=== PATIENT | female | born 1960 | race Caucasian/White ===

== ENCOUNTER 2016-06-30 16:32 | Observation (INO) ==
--- NOTE | 2016-06-30 16:54 | Emergency Department Note ---
Disposition Clinical Impression: Acute exacerbation of chronic obstructive airways disease Disposition: Admitted As Inpatient Referrals: Paul Mccloud MD [Primary Care Provider] - Forms: ED Satisfaction Letter SOB HPI - General Chief Complaint: ED Shortness of Breath/Dyspnea Stated Complaint: increased trouble breathing Time Seen by Provider: 06/30/16 16:41 Source: patient, family Mode of arrival: private vehicle Limitations: no limitations Nursing Notes Reviewed: Yes Vital Signs Reviewed: Yes - History of Present Illness Relates that she has had increased shortness of breath for 2-3 weeks. She relates she has been through multiple treatments, steroids, antibiotics and aerosols and continues with persistent severe dyspnea. She reports dyspnea on exertion and at rest. She was given her last increased prednisone and Solu- Medrol 2 days ago and continues with shortness of breath. She did see her communications specialist about 2 weeks ago and states that he was not in today. She has been doing aerosols about every 4 hours for 3 weeks. She does report some chills but denies fever. She states she has a tight cough that is nonproductive. She does report some without vomiting. She denies diaphoresis, weakness or dizziness. She states she has been around multiple others with upper respiratory infection. She states that when it has gotten this bad she usually ended up needing to be admitted and she would like to go to [facility] if she can. Pt Subjective Complaint: shortness of breath Onset (ago): week(s) Context: recent illness Severity: moderate, severe Consistency/Duration: gradually worsening Improves with: oxygen, bronchodilators Worsens with: exertion, movement, coughing Known history of: COPD Associated symptoms: Reports: cough, wheezing, nausea/vomiting (No vomiting). Denies: chest pain, pain with inspiration, fever, sputum production, orthopnea, lower extremity pain, polyuria, polydipsia, parasthesias, palpitations, hemoptysis, diaphoresis, syncope, abdominal pain, rash Treatment prior to arrival: oxygen, bronchodilator Cough present: Yes Cough Description: Voluntary, Non-Productive, Hacking Cough Frequency: Intermittent Sputum production: No - Related Data Home oxygen amount: none Home Medications Medication Instructions Recorded Confirmed Dexlansoprazole [Dexilant] 60 mg PO DAILY 01/04/15 04/03/16 Esomeprazole Magnesium [Nexium] 40 mg PO DAILY 01/04/15 04/03/16 Gabapentin [Neurontin] 300 mg PO BID 01/04/15 04/03/16 Albuterol Sulfate [Ventolin Hfa] 2 puff IH DAILY PRN 04/07/15 04/03/16 Budesonide/Formoterol 160/4.5 1 puff IH DAILY 12/28/15 04/03/16 [Symbicort 160/4.5] FLUoxetine HCl [Prozac] 20 mg PO DAILY 12/28/15 04/03/16 Albuterol Neb [Proventil Neb] 2.5 mg IH PRN PRN 01/01/16 04/03/16 Fluticasone/Salmeterol [Advair Hfa 1 puff IH BID 01/01/16 04/03/16 115-21 Mcg Inhaler] Omalizumab [XOLAIR (For Outpatient 150 mg SQ Q2W 01/01/16 04/03/16 Infusion)] Previous Rx's Medication Instructions Recorded Montelukast [Singulair] 10 mg PO DAILY #30 tablet 04/09/15 Tiotropium [Spiriva] 18 mcg IH 0700 #30 capsule 04/09/15 Celecoxib [Celebrex] 200 mg PO BID 10 Days 01/01/16 Gabapentin [Neurontin] 400 mg PO TID 30 Days 01/01/16 PredniSONE 20 mg PO DAILY #24 tablet 06/25/16 Allergies Allergy/AdvReac Type Severity Reaction Status Date / Time aspirin Allergy Mild Wheezing Verified 04/03/16 23:20 milk Allergy See Verified 04/03/16 23:20 Comments Pneumococcal Vaccine AdvReac Anxiety Verified 06/30/16 16:33 quetiapine [From Seroquel] AdvReac Agitated Verified 04/03/16 23:20 All systems ED: reviewed and negative except as stated. Past Medical History - Past Medical History Attestation: Yes The following information was validated with the patient. Source: patient, nursing notes reviewed Medical history: Reports: asthma, COPD, GERD, other Surgical history: Reports: cholecystectomy, sinus surgery, CORRINE/BSO, other Psychiatric history: Reports: anxiety, bipolar, depression, panic disorder FARO DEALER history: Reports: no FARO DEALER history - Social History Smoking Status: Never smoker Smokeless Tobacco Status: No Alcohol use: Reports: none Drug use: Reports: none Physical Exam - General Limitations: no limitations General appearance: alert, in distress - Head Head exam: atraumatic, normocephalic, normal inspection - Eye Eye exam: Present: normal appearance, PERRL, EOMI - ENT ENT exam: normal exam, normal oropharynx, mucous membranes moist - Neck Neck exam: Present: normal inspection, full ROM, trachea midline. Absent: tenderness, lymphadenopathy - Chest Chest inspection: Present: normal inspection, symmetric chest wall rise. Absent : tenderness - Respiratory Respiratory exam: Present: respiratory distress, wheezes, prolonged expiratory phase. Absent: accessory muscle use - Cardiovascular Cardiovascular exam: Present: regular rate, normal rhythm, normal heart sounds. Absent: tachycardia - Abdominal Exam Abdominal exam: Present: soft, Non-Tender, normal bowel sounds. Absent: tenderness, distention, guarding, rebound, rigidity - Extremities Exam Extremities exam: Present: normal inspection, full ROM, normal capillary refill. Absent: tenderness, pedal edema - Expanded Lower Extremity Exam Neurovascular/Tendon exam: Present: normal capillary refill. Absent: motor deficit, sensory deficit, tendon deficit Gait: observed and normal - Back Exam Back exam: Present: normal inspection, full ROM. Absent: tenderness, CVA tenderness (R), CVA tenderness (L), vertebral tenderness - Neurological Exam Neurological exam: Present: alert, oriented X3, normal gait - Psychiatric Psychiatric exam: Present: normal affect, normal mood - Skin Skin exam: Present: warm, dry, intact, normal color. Absent: cyanosis, diaphoresis, erythema Course Course Narrative: All lab and imaging and the patient's clinical course is discussed with Dr. Pozo. He is agreeable with continued observation this patient and patient on COPD protocol. Verbal orders are obtained her admission. Vital Signs Temperature 99.1 F 06/30/16 16:35 Pulse Rate 95 06/30/16 16:35 Respiratory Rate 20 06/30/16 16:35 Blood Pressure 166/99 06/30/16 16:35 O2 Sat by Pulse Oximetry 96 06/30/16 16:35 Temperature 99.1 F 06/30/16 16:40 Pulse Rate 87 06/30/16 17:56 Respiratory Rate 20 06/30/16 17:56 Blood Pressure 157/94 06/30/16 17:56 O2 Sat by Pulse Oximetry 94 L 06/30/16 17:56 Oxygen Delivery Oxygen Delivery Nasal Cannula Shortness of Breath/Dyspnea - Differential Diagnosis Likely: acute exacerbation of chronic obstructive airways disease, pneumonia, asthma with exacerbation - Medical Records Medical records reviewed: Yes I reviewed the patient's medical records. - Lab Data Lab results reviewed: Yes I reviewed the patient's lab results. Result diagrams: 06/30/16 17:15 06/30/16 17:15 Lab Results 06/30/16 06/30/16 06/30/16 Range/Units 17:15 17:15 17:15 WBC 8.5 (4.3-11.1) K/mcL RBC 5.12 H (3.82-4.97) M/mcL Hgb 13.7 (11.5-15.4) g/dL Hct 40.9 (35.3-44.9) % MCV 79.9 L (83.0-100.0) fL MCH 26.8 L (28.0-33.3) pg MCHC 33.5 (31.6-35.5) g/dL RDW 13.4 (11.5-14.5) % Plt Count 240 (140-400) K/mcL MPV 10.8 (9.4-12.4) fL Immature Gran % 0.4 (0-4) % Seg Neutrophils % 63.8 % Lymphocytes % 26.3 % Monocytes % 4.0 % Eosinophils % 4.9 % Basophils % 0.6 % Neutrophils # 5.4 (1.6-8.9) K/mcL Lymphocytes # 2.2 (0.6-4.6) K/mcL Monocytes # 0.3 (0.0-1.3) K/mcL Eosinophils # 0.4 (0.0-0.6) K/mcL Basophils # 0.1 (0.0-0.2) K/mcL PT 10.0 (9.4-12.1) Seconds INR 0.9 APTT 27.3 (26.0-36.0) Seconds Sodium 140 (136-145) mEq/L Potassium 3.9 (3.5-4.5) mEq/L Chloride 107 (98-109) mEq/L Carbon Dioxide 21 (19-29) mEq/L BUN 14 (7-20) mg/dL Creatinine 0.76 (0.57-1.11) mg/dL Est GFR ( Amer) > 60 (> 60) Est GFR (Non-Af Amer) > 60 (> 60) BUN/Creatinine Ratio 18 (6-26) Glucose 108 H (70-99) mg/dL Calculated Osmolality 291 (280-300) Calcium 8.9 (8.6-10.8) mg/dL Troponin I (0-0.03) ng/mL 06/30/16 Range/Units 17:15 WBC (4.3-11.1) K/mcL RBC (3.82-4.97) M/mcL Hgb (11.5-15.4) g/dL Hct (35.3-44.9) % MCV (83.0-100.0) fL MCH (28.0-33.3) pg MCHC (31.6-35.5) g/dL RDW (11.5-14.5) % Plt Count (140-400) K/mcL MPV (9.4-12.4) fL Immature Gran % (0-4) % Seg Neutrophils % % Lymphocytes % % Monocytes % % Eosinophils % % Basophils % % Neutrophils # (1.6-8.9) K/mcL Lymphocytes # (0.6-4.6) K/mcL Monocytes # (0.0-1.3) K/mcL Eosinophils # (0.0-0.6) K/mcL Basophils # (0.0-0.2) K/mcL PT (9.4-12.1) Seconds INR APTT (26.0-36.0) Seconds Sodium (136-145) mEq/L Potassium (3.5-4.5) mEq/L Chloride (98-109) mEq/L Carbon Dioxide (19-29) mEq/L BUN (7-20) mg/dL Creatinine (0.57-1.11) mg/dL Est GFR ( Amer) (> 60) Est GFR (Non-Af Amer) (> 60) BUN/Creatinine Ratio (6-26) Glucose (70-99) mg/dL Calculated Osmolality (280-300) Calcium (8.6-10.8) mg/dL Troponin I 0.00 (0-0.03) ng/mL - Radiology Data Radiology results reviewed: Yes I reviewed the patient's radiology results. Single view chest x-ray is performed. This does not demonstrate evidence for infiltrate, effusion, pneumothorax, foreign body or heart failure. The cardiac silhouette is normal. I do not see abnormality to the osseous structures of the chest. This is on my interpretation. Impressions Chest X-Ray 06/30/16 16:59 IMPRESSION: No acute cardiac or pulmonary disease. D/ / Romel Palm MD / Romel Palm MD Interpreting Provider: Romel Palm MD
[2016-06-30] MEDS ORDERED: 0.9 % Sodium Chloride 1,000 ML IVC SCH (17:00)
[2016-06-30] MEDS ORDERED: Ipratropium/Albuterol Neb 3 ML IH ONE (17:00)
[2016-06-30 17:23] LABS: Basophils # 0.1 K/mcL (0.0-0.2); Basophils % 0.6 %; Eosinophils # 0.4 K/mcL (0.0-0.6); Eosinophils % 4.9 %; Hematocrit 40.9 % (35.3-44.9); Hemoglobin 13.7 g/dL (11.5-15.4); Immature Granulocytes % 0.4 % (0-4); Lymphocytes # 2.2 K/mcL (0.6-4.6); Lymphocytes % 26.3 %; Mean Corpuscular HGB Conc 33.5 g/dL (31.6-35.5); Mean Corpuscular Hemoglobin 26.8 pg (28.0-33.3); Mean Corpuscular Volume 79.9 fL (83.0-100.0); Mean Platelet Volume 10.8 fL (9.4-12.4); Monocytes # 0.3 K/mcL (0.0-1.3); Neutrophils # 5.4 K/mcL (1.6-8.9); Platelet Count 240 K/mcL (140-400); Red Blood Count 5.12 M/mcL (3.82-4.97); Red Cell Distribution Width 13.4 % (11.5-14.5); Segmented Neutrophils % 63.8 %
[2016-06-30 17:29] LABS: INR 0.9
[2016-06-30 17:31] LABS: Activated Partial Thrombo Time 27.3 Seconds (26.0-36.0)
[2016-06-30 17:38] LABS: BUN/Creatinine Ratio 18 (6-26); Blood Urea Nitrogen 14 mg/dL (7-20); Calcium 8.9 mg/dL (8.6-10.8); Carbon Dioxide 21 mEq/L (19-29); Chloride 107 mEq/L (98-109); Glucose 108 mg/dL (70-99); Osmolality,Calculated 291 (280-300); Potassium 3.9 mEq/L (3.5-4.5); Sodium 140 mEq/L (136-145); eGFR For African Americans > 60 (> 60); eGFR For Non-African Americans > 60 (> 60)
[2016-06-30] MEDS ORDERED: Naloxone 0.4 MG/ML INJ IVP PRN (20:45)
[2016-06-30] MEDS ORDERED: MOM Conc 10 ML UD.LIQ PO PRN (20:45)
[2016-06-30] MEDS ORDERED: Acetaminophen 325 MG TABLET PO PRN (20:45)
[2016-06-30] MEDS ORDERED: Ondansetron 4 MG/2 ML VIAL IVP PRN (20:45)
[2016-06-30] MEDS: 0.9 % Sodium Chloride 1,000 ML IVC SCH (22:02)
[2016-06-30] MEDS ORDERED: GI Cocktail 40 ML EACH PO ONE (22:30)
[2016-06-30] MEDS: Ipratropium/Albuterol Neb 3 ML IH SCH (22:50)
[2016-07-01] MEDS: MethylPREDNISolone 40 MG/ML VIAL IVP SCH ×2 (01:15→10:24)
[2016-07-01] MEDS: 0.9 % Sodium Chloride 1,000 ML IVC SCH (02:07)
[2016-07-01] MEDS: Ipratropium/Albuterol Neb 3 ML IH SCH ×2 (04:49→10:32)
[2016-07-01] MEDS ORDERED: Levofloxacin 500 MG/100 ML 500 MG/100 ML BAG IVPB SCH (09:00)
[2016-07-01 12:09] VITALS: BP 169/93
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
--- NOTE | 2016-07-01 12:37 | Discharge Summary ---
Date of Encounter: 07/01/16 Time of Encounter: 11:40 - Discharge Diagnosis (1) Acute exacerbation of chronic obstructive airways disease Priority: Primary Status: Acute - Discharge Medications Home Medications: Dexlansoprazole [Dexilant] 60 mg PO DAILY 01/04/15 [History] Gabapentin [Neurontin] 300 mg PO BID 01/04/15 [History] Albuterol Sulfate [Ventolin Hfa] 2 puff IH DAILY PRN 04/07/15 [History] Montelukast [Singulair] 10 mg PO DAILY #30 tablet 04/09/15 [Rx] Tiotropium [Spiriva] 18 mcg IH 0700 #30 capsule 04/09/15 [Rx] FLUoxetine HCl [Prozac] 20 mg PO DAILY 12/28/15 [History] Albuterol Neb [Proventil Neb] 2.5 mg IH PRN PRN 01/01/16 [History] Fluticasone/Salmeterol [Advair Hfa 115-21 Mcg Inhaler] 1 puff IH BID 01/01/16 [ History] Omalizumab [XOLAIR (For Outpatient Infusion)] 150 mg SQ Q2W 01/01/16 [History] PredniSONE 20 mg PO DAILY #24 tablet 06/25/16 [Rx] Allergies/Adverse Reactions: Allergies aspirin Allergy (Mild, Verified 04/03/16 23:20) Wheezing milk Allergy (Verified 04/03/16 23:20) See Comments Pneumococcal Vaccine Adverse Reaction (Verified 06/30/16 16:33) Anxiety quetiapine [From Seroquel] Adverse Reaction (Verified 04/03/16 23:20) Agitated Date of admission: 06/30/16 19:19 Primary care physician: Paul Mccloud MD - Patient Status Disposition: Home, Self-Care Functional capacity at discharge: independent ambulation Overall status at discharge: patient is progressing back to baseline - Discharge Instructions Follow Up With: Paul Mccloud MD [Primary Care Provider] - 1 week - Diet and Activity Activity: resume usual activities as tolerated Diet: advance to your usual diet Hospital course: Ms. Turner is a 56 year old female who came to emergency room stating she had increased dyspnea onset approximately 3 weeks ago. 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 There was minimal improvement with this treatment. On June 28 she came to emergency room and received additional steroids and was given a prescription for prednisone. Her status remained unimproved so she returned to emergency room on June 30 and was felt to have exacerbation of COPD. She was admitted to [facility] for ongoing care needs. Initial orders were written by the emergency room physician. I saw her on July 01 and performed a history and physical. She was started on IV Levaquin and Solu-Medrol by the emergency room physician. When I saw her she stated her breathing had improved and she felt stable for discharge home. I did not feel she needed further antibiotics. She will complete the prednisone prescription supplied in emergency room a few days ago. I reviewed her history and note an echocardiogram had been done August 2013 which showed no systolic or diastolic function abnormalities. Chest CT done in December 2015 showed no significant pathology. She will be discharged home and follow with her PCP and/or insole and outsole preparer office within one week. - Time Spent with Patient Total time spent providing and/or coordinating discharge services: - Constitutional Vitals: Temp Pulse Resp BP Pulse Ox 98.5 F 106 16 169/93 95 07/01/16 12:00 07/01/16 12:00 07/01/16 12:00 07/01/16 12:00 07/01/16 12:00 - VTE Documentation of Mechanical Device: Graduated compression elastic hosiery
--- NOTE | 2016-07-01 18:02 | Electrocardiograph Report ---
[address] [address] Test Date: 2016-06-30 Pat Name: Rachel Turner Department: [id number] Room: [facility] Gender: F Fisher Seal: : 1960 Requested By: Juan Johnson Order Number: [id number] Reading MD: Nae Acevedo Measurements Intervals [place] Rate: 84 P: 56 TX: 152 QRS: 5 QRSD: 90 T: 16 QT: 369 QTc: 409 Interpretive Statements SINUS RHYTHM LOW QRS VOLTAGE IN PRECORDIAL LEADS Electronically Signed On 07-01-2016 18:00:47 EST by Nae Acevedo
== END 2016-07-01 13:19 | disposition home or self-care (01) ==
LOC: EMEROOPIK 16:32 → INPPIK 16:32
PROVIDERS: ADMIT Internal Medicine; ATTEND Internal Medicine

== ENCOUNTER 2020-10-30 15:10 | Observation (INO) ==
[2020-10-30] MEDS ORDERED: Perflutren Lipid Microsphere 1.3 ML in 0.9 % Sodium Chloride 8.7 ML IVP PRN (16:54)
[2020-10-30] MEDS ORDERED: Ondansetron ODT 4 MG TAB.RAPDIS SL PRN (17:07)
[2020-10-30] MEDS ORDERED: Acetaminophen 325 MG TABLET PO PRN (17:07)
[2020-10-30] MEDS ORDERED: Naloxone 0.4 MG/ML INJ IVP PRN (17:07)
[2020-10-30 17:25] LABS: Basophils # 0.1 K/mcL (0.0-0.2); Basophils % 0.4 %; Eosinophils # 0.1 K/mcL (0.0-0.6); Hematocrit 39.6 % (35.3-44.9); Hemoglobin 12.7 g/dL (11.5-15.4); Lymphocytes # 3.7 K/mcL (0.6-4.6); Lymphocytes % 27.5 %; Mean Corpuscular HGB Conc 32.1 g/dL (31.6-35.5); Mean Corpuscular Hemoglobin 24.7 pg (28.0-33.3); Mean Corpuscular Volume 76.9 fL (83.0-100.0); Mean Platelet Volume 9.9 fL (9.4-12.4); Monocytes # 0.8 K/mcL (0.0-1.3); Monocytes % 6.1 %; Neutrophils # 8.6 K/mcL (1.6-8.9); Platelet Count 303 K/mcL (140-400); Red Blood Count 5.15 M/mcL (3.82-4.97); Red Cell Distribution Width 14.6 % (11.5-14.5); White Blood Count 13.5 K/mcL (4.3-11.1)
[2020-10-30 17:41] LABS: Alanine Aminotransferase 49 Units/L (7-52); Albumin 4.2 g/dL (3.5-5.7); Albumin/Globulin Ratio 1.4 (1.1-2.2); Alkaline Phosphatase 104 Units/L (34-104); Aspartate Amino Transferase 24 Units/L (13-39); BUN/Creatinine Ratio 15 (6-26); Bilirubin,Total 0.4 mg/dL (0.3-1.0); Blood Urea Nitrogen 13 mg/dL (6-20); Calcium 9.3 mg/dL (8.6-10.3); Carbon Dioxide 27 mEq/L (23-29); Chloride 102 mEq/L (98-107); Globulin 2.9 g/dL (2.4-3.5); Glucose 108 mg/dL (70-105); Magnesium 1.9 mg/dL (1.6-2.6); Osmolality,Calculated 289 (280-300); Potassium 3.3 mEq/L (3.5-5.1); Sodium 139 mEq/L (136-145); Total Protein 7.1 g/dL (6.4-8.9); eGFR For African Americans > 60 (> 60); eGFR For Non-African Americans > 60 (> 60)
[2020-10-30] MEDS ORDERED: Isovue-370 500 ML BOTTLE IVP ONE (17:43)
[2020-10-30 17:44] LABS: Troponin I < 0.03 ng/mL (< 0.04)
[2020-10-30 19:23] LABS: Bilirubin,Urine Negative (Negative); Blood,Urine Negative (Negative); Clarity,Urine Clear (Clear); Glucose,Urine (UA) Normal (Normal); Ketones,Urine Negative (Negative); Leukocyte Esterase,Urine Negative (Negative); Nitrite,Urine Negative (Negative); Protein,Urine Negative (Neg-Trace); Specific Gravity,Urine 1.015 (1.010-1.025); Urobilinogen,Urine Normal (Normal)
[2020-10-30 19:27] LABS: Color,Urine Light Yellow (Yellow)
[2020-10-30 19:50] LABS: Adenovirus Not Detected (Not Detect); Bordetella Pertussis Not Detected (Not Detect); Chlamydophila pneumoniae Not Detected (Not Detect); Coronavirus 229E Not Detected (Not Detect); Coronavirus HKU1 Not Detected (Not Detect); Coronavirus NL63 DETECTED (Not Detect); Coronavirus OC43 Not Detected (Not Detect); Human Metapneumovirus Not Detected (Not Detect); Human Rhinovirus/Enterovirus Not Detected (Not Detect); Influenza A Subtype 2009 H1 Not Detected (Not Detect); Influenza B Not Detected (Not Detect); Mycoplasma pneumoniae Not Detected (Not Detect); Parainfluenza Virus 1 Not Detected (Not Detect); Parainfluenza Virus 2 Not Detected (Not Detect); Parainfluenza Virus 3 Not Detected (Not Detect); Parainfluenza Virus 4 Not Detected (Not Detect); Respiratory Syncytial Virus Not Detected (Not Detect); SARS-CoV-2 Not Detected (Not Detect)
[2020-10-30] MEDS: Pantoprazole 40 MG VIAL IVP SCH (19:54)
[2020-10-30] MEDS: cefTRIAXone 2,000 MG in 0.9 % Sodium Chloride Mini Bag 100 ML IVPB SCH (19:59)
[2020-10-30] MEDS: risperiDONE 1 MG TABLET PO SCH (20:03)
[2020-10-30] MEDS: ALPRAZolam 0.5 MG TABLET PO SCH (20:04)
[2020-10-30] MEDS: Budesonide/Formoterol 160/4.5 1 PUFF INH IH SCH (20:28)
[2020-10-30] MEDS: Azithromycin 500 MG in 0.9 % Sodium Chloride 250 ML IVPB SCH (21:11)
[2020-10-30] MEDS: *HR* Heparin 5,000 UNIT/ML VIAL SQ SCH (22:58)
[2020-10-30] MEDS: MethylPREDNISolone 40 MG/ML VIAL IVP SCH (23:52)
[2020-10-31] MEDS: Ipratropium/Albuterol Neb 3 ML IH PRN (03:24)
[2020-10-31] MEDS: Levothyroxine 25 MCG TABLET PO SCH (05:48)
[2020-10-31] MEDS: *HR* Heparin 5,000 UNIT/ML VIAL SQ SCH ×4 (05:48→20:26)
[2020-10-31 06:27] LABS: Hematocrit 37.6 % (35.3-44.9); Hemoglobin 11.7 g/dL (11.5-15.4); Mean Corpuscular HGB Conc 31.1 g/dL (31.6-35.5); Mean Corpuscular Hemoglobin 24.6 pg (28.0-33.3); Mean Platelet Volume 10.8 fL (9.4-12.4); Platelet Count 273 K/mcL (140-400); Red Blood Count 4.76 M/mcL (3.82-4.97); Red Cell Distribution Width 14.8 % (11.5-14.5); White Blood Count 7.4 K/mcL (4.3-11.1)
[2020-10-31 07:38] LABS: BUN/Creatinine Ratio 12 (6-26); Blood Urea Nitrogen 11 mg/dL (6-20); Calcium 8.9 mg/dL (8.6-10.3); Carbon Dioxide 25 mEq/L (23-29); Chloride 103 mEq/L (98-107); Glucose 212 mg/dL (70-105); Osmolality,Calculated 294 (280-300); Potassium 3.9 mEq/L (3.5-5.1); Sodium 139 mEq/L (136-145); eGFR For African Americans > 60 (> 60); eGFR For Non-African Americans > 60 (> 60)
[2020-10-31] MEDS: Budesonide/Formoterol 160/4.5 1 PUFF INH IH SCH ×2 (09:35→20:34)
[2020-10-31] MEDS: Pantoprazole 40 MG VIAL IVP SCH (10:18)
[2020-10-31] MEDS: Isosorbide MONOnitrate (24 HR) 60 MG TAB.ER.24H PO SCH (10:19)
[2020-10-31] MEDS: risperiDONE 1 MG TABLET PO SCH ×2 (10:19→20:26)
[2020-10-31] MEDS: MethylPREDNISolone 40 MG/ML VIAL IVP SCH ×2 (10:19→18:11)
[2020-10-31] MEDS: ALPRAZolam 0.5 MG TABLET PO SCH ×3 (10:19→20:26)
[2020-10-31] MEDS: Furosemide 20 MG TABLET PO SCH (10:20)
[2020-10-31] MEDS: amLODIPine 5 MG TABLET PO SCH (10:20)
[2020-10-31] MEDS: cefTRIAXone 2,000 MG in 0.9 % Sodium Chloride Mini Bag 100 ML IVPB SCH (18:12)
[2020-10-31] MEDS: Azithromycin 500 MG in 0.9 % Sodium Chloride 250 ML IVPB SCH (18:53)
[2020-10-31] MEDS: Melatonin 3 MG TABLET PO PRN (20:26)
[2020-11-01] MEDS: MethylPREDNISolone 40 MG/ML VIAL IVP SCH ×3 (01:21→15:11)
[2020-11-01] MEDS: *HR* Heparin 5,000 UNIT/ML VIAL SQ SCH ×3 (07:00→20:14)
[2020-11-01] MEDS: Levothyroxine 25 MCG TABLET PO SCH (07:01)
[2020-11-01] MEDS: Budesonide/Formoterol 160/4.5 1 PUFF INH IH SCH ×2 (07:20→20:07)
[2020-11-01] MEDS: Ipratropium/Albuterol Neb 3 ML IH PRN ×2 (07:23→20:01)
[2020-11-01 08:40] LABS: Hematocrit 37.4 % (35.3-44.9); Hemoglobin 11.8 g/dL (11.5-15.4); Mean Corpuscular HGB Conc 31.6 g/dL (31.6-35.5); Mean Corpuscular Hemoglobin 24.6 pg (28.0-33.3); Mean Corpuscular Volume 77.9 fL (83.0-100.0); Mean Platelet Volume 10.5 fL (9.4-12.4); Platelet Count 291 K/mcL (140-400); Red Cell Distribution Width 14.9 % (11.5-14.5); White Blood Count 22.1 K/mcL (4.3-11.1)
[2020-11-01 08:54] LABS: BUN/Creatinine Ratio 20 (6-26); Blood Urea Nitrogen 17 mg/dL (6-20); Calcium 8.6 mg/dL (8.6-10.3); Carbon Dioxide 25 mEq/L (23-29); Chloride 102 mEq/L (98-107); Glucose 168 mg/dL (70-105); Osmolality,Calculated 289 (280-300); Potassium 3.7 mEq/L (3.5-5.1); Sodium 137 mEq/L (136-145); eGFR For African Americans > 60 (> 60); eGFR For Non-African Americans > 60 (> 60)
[2020-11-01] MEDS: Isosorbide MONOnitrate (24 HR) 60 MG TAB.ER.24H PO SCH (10:13)
[2020-11-01] MEDS: risperiDONE 1 MG TABLET PO SCH ×2 (10:13→20:14)
[2020-11-01] MEDS: ALPRAZolam 0.5 MG TABLET PO SCH ×3 (10:13→20:13)
[2020-11-01] MEDS: Pantoprazole 40 MG VIAL IVP SCH (10:14)
[2020-11-01] MEDS: amLODIPine 5 MG TABLET PO SCH (10:14)
[2020-11-01] MEDS: Furosemide 20 MG TABLET PO SCH (10:14)
[2020-11-01] MEDS: cefTRIAXone 2,000 MG in 0.9 % Sodium Chloride Mini Bag 100 ML IVPB SCH (18:13)
[2020-11-01] MEDS: Azithromycin 500 MG in 0.9 % Sodium Chloride 250 ML IVPB SCH (18:49)
[2020-11-01] MEDS: Melatonin 3 MG TABLET PO PRN (20:14)
[2020-11-02] MEDS: MethylPREDNISolone 40 MG/ML VIAL IVP SCH ×2 (00:21→08:30)
[2020-11-02] MEDS: Levothyroxine 25 MCG TABLET PO SCH (05:35)
[2020-11-02] MEDS: *HR* Heparin 5,000 UNIT/ML VIAL SQ SCH (05:35)
[2020-11-02 07:32] VITALS: BP 146/77
[2020-11-02] MEDS: Isosorbide MONOnitrate (24 HR) 60 MG TAB.ER.24H PO SCH (08:29)
[2020-11-02] MEDS: ALPRAZolam 0.5 MG TABLET PO SCH (08:29)
[2020-11-02] MEDS: risperiDONE 1 MG TABLET PO SCH (08:30)
[2020-11-02] MEDS: amLODIPine 5 MG TABLET PO SCH (08:30)
[2020-11-02] MEDS: Pantoprazole 40 MG VIAL IVP SCH (08:30)
[2020-11-02] MEDS: Furosemide 20 MG TABLET PO SCH ×2 (08:30→09:39)
[2020-11-02] MEDS: Budesonide/Formoterol 160/4.5 1 PUFF INH IH SCH (09:25)
[2020-11-02 09:40] LABS: Hematocrit 36.5 % (35.3-44.9); Hemoglobin 11.6 g/dL (11.5-15.4); Mean Corpuscular HGB Conc 31.8 g/dL (31.6-35.5); Mean Corpuscular Hemoglobin 24.9 pg (28.0-33.3); Mean Corpuscular Volume 78.5 fL (83.0-100.0); Mean Platelet Volume 10.2 fL (9.4-12.4); Platelet Count 270 K/mcL (140-400); Red Blood Count 4.65 M/mcL (3.82-4.97); Red Cell Distribution Width 15.3 % (11.5-14.5); White Blood Count 16.9 K/mcL (4.3-11.1)
[2020-11-02 09:54] LABS: BUN/Creatinine Ratio 19 (6-26); Blood Urea Nitrogen 14 mg/dL (6-20); Calcium 8.4 mg/dL (8.6-10.3); Carbon Dioxide 29 mEq/L (23-29); Chloride 102 mEq/L (98-107); Glucose 149 mg/dL (70-105); Osmolality,Calculated 287 (280-300); Sodium 137 mEq/L (136-145); eGFR For African Americans > 60 (> 60); eGFR For Non-African Americans > 60 (> 60)
== END 2020-11-02 10:15 | disposition home or self-care (01) ==
LOC: INPPIK
PROVIDERS: ADMIT Family Medicine; ATTEND Family Medicine

== ENCOUNTER 2021-07-11 14:00 | Observation (INO) ==
[2021-07-11] MEDS ORDERED: methylPREDNISolone 125 MG/2 ML VIAL IVP ONE (14:43)
[2021-07-11] MEDS ORDERED: Ipratropium/Albuterol Neb 3 ML IH ONE (14:43)
[2021-07-11 15:11] LABS: INR 0.9; Prothrombin Time 10.1 Seconds (9.4-12.1)
[2021-07-11 15:12] LABS: Basophils % 0.4 %; Eosinophils % 0.4 %; Hematocrit 38.1 % (35.3-44.9); Hemoglobin 11.9 g/dL (11.5-15.4); Immature Granulocytes % 0.4 % (0-4); Lymphocytes % 25.9 %; Mean Corpuscular HGB Conc 31.2 g/dL (31.6-35.5); Mean Corpuscular Hemoglobin 24.8 pg (28.0-33.3); Mean Corpuscular Volume 79.5 fL (83.0-100.0); Mean Platelet Volume 10.4 fL (9.4-12.4); Monocytes # 0.6 K/mcL (0.0-1.3); Monocytes % 7.5 %; Neutrophils # 5.1 K/mcL (1.6-8.9); Platelet Count 215 K/mcL (140-400); Red Blood Count 4.79 M/mcL (3.82-4.97); Red Cell Distribution Width 13.9 % (11.5-14.5); Segmented Neutrophils % 65.4 %; White Blood Count 7.8 K/mcL (4.3-11.1)
[2021-07-11 15:13] LABS: Activated Partial Thrombo Time 32.9 Seconds (26.0-36.0)
[2021-07-11 15:22] LABS: ABG Base Excess 1 mEq/L (-2 to 3); ABG HCO3 25 mEq/L (21-27); ABG Oxygen Saturation 96 % (95-98); ABG PCO2 39 mmHg (35-45); ABG PH 7.42 pH Units (7.32-7.45); ABG PO2 78 mmHg (85-104); ABG TCO2 27 mEq/L (20-26)
[2021-07-11 15:23] LABS: Troponin I < 0.03 ng/mL (< 0.04)
[2021-07-11 15:26] LABS: Alanine Aminotransferase 59 Units/L (7-52); Albumin 3.6 g/dL (3.5-5.7); Albumin/Globulin Ratio 1.3 (1.1-2.2); Alkaline Phosphatase 84 Units/L (34-104); Aspartate Amino Transferase 35 Units/L (13-39); BUN/Creatinine Ratio 15 (6-26); Bilirubin,Indirect 0.3 mg/dL (0.0-1.0); Bilirubin,Total 0.3 mg/dL (0.3-1.0); Blood Urea Nitrogen 12 mg/dL (6-20); Calcium 8.7 mg/dL (8.6-10.3); Carbon Dioxide 26 mEq/L (23-29); Chloride 105 mEq/L (98-107); Globulin 2.7 g/dL (2.4-3.5); Glucose 125 mg/dL (70-105); Osmolality,Calculated 289 (280-300); Potassium 3.7 mEq/L (3.5-5.1); Sodium 139 mEq/L (136-145); Total Protein 6.3 g/dL (6.4-8.9); eGFR For African Americans > 60 (> 60); eGFR For Non-African Americans > 60 (> 60)
[2021-07-11] MEDS ORDERED: Naloxone 0.4 MG/ML INJ IVP PRN (16:54)
[2021-07-11] MEDS ORDERED: Furosemide 20 MG TABLET PO PRN (16:56)
[2021-07-11] MEDS ORDERED: ALPRAZolam 0.5 MG TABLET PO PRN (17:00)
[2021-07-11] MEDS ORDERED: AUTO INJECTOR SQ SCH (17:15)
[2021-07-11] MEDS ORDERED: MEPOLIZUMAB 100 MG/ML SQ SCH (17:15)
[2021-07-11] MEDS ORDERED: Ondansetron ODT 4 MG TAB.RAPDIS SL PRN (18:00)
[2021-07-11 18:59] LABS: Bilirubin,Urine Negative (Negative); Blood,Urine Small (Negative); Clarity,Urine Clear (Clear); Color,Urine Yellow (Yellow); Glucose,Urine (UA) 250 mg/dL (Normal); Ketones,Urine Negative (Negative); Leukocyte Esterase,Urine Negative (Negative); Nitrite,Urine Negative (Negative); Protein,Urine Negative (Neg-Trace); Specific Gravity,Urine 1.015 (1.010-1.025); Urobilinogen,Urine Normal (Normal)
[2021-07-11 19:07] LABS: RBC,Urine 0-3 per hpf (0-3); Squamous Epithelial Cell,Urine Few per hpf (None-Few); WBC,Urine 0-3 per hpf (0-3)
[2021-07-11] MEDS ORDERED: Ipratropium/Albuterol Neb 3 ML IH PRN (20:00)
[2021-07-11 21:43] LABS: Adenovirus Not Detected (Not Detect); Coronavirus 229E Not Detected (Not Detect); Coronavirus HKU1 Not Detected (Not Detect); Coronavirus NL63 Not Detected (Not Detect); Coronavirus OC43 Not Detected (Not Detect); Human Metapneumovirus Not Detected (Not Detect); Human Rhinovirus/Enterovirus Not Detected (Not Detect); SARS-CoV-2 Not Detected (Not Detect)
[2021-07-11 21:44] LABS: Bordetella Pertussis Not Detected (Not Detect); Chlamydophila pneumoniae Not Detected (Not Detect); Influenza A Subtype 2009 H1 Not Detected (Not Detect); Influenza B Not Detected (Not Detect); Mycoplasma pneumoniae Not Detected (Not Detect); Parainfluenza Virus 1 Not Detected (Not Detect); Parainfluenza Virus 2 Not Detected (Not Detect); Parainfluenza Virus 3 Not Detected (Not Detect); Parainfluenza Virus 4 Not Detected (Not Detect); Respiratory Syncytial Virus Not Detected (Not Detect)
[2021-07-11] MEDS: risperiDONE 1 MG TABLET PO SCH (21:54)
[2021-07-11] MEDS ORDERED: *HR* LORazepam 1 MG TABLET PO ONE (22:11)
[2021-07-11] MEDS ORDERED: Gabapentin 300 MG CAPSULE PO ONE (22:13)
[2021-07-12] MEDS: MethylPREDNISolone 40 MG/ML VIAL IVP SCH ×3 (00:10→11:41)
[2021-07-12] MEDS ORDERED: *HR* Enoxaparin 40 MG/0.4 ML SYRINGE SQ SCH (06:00)
[2021-07-12] MEDS ORDERED: Levothyroxine 25 MCG TABLET PO SCH (06:30)
[2021-07-12 06:43] LABS: Basophils % 0.1 %; Hematocrit 38.7 % (35.3-44.9); Immature Granulocytes % 0.7 % (0-4); Lymphocytes # 0.8 K/mcL (0.6-4.6); Lymphocytes % 5.9 %; Mean Corpuscular Hemoglobin 24.6 pg (28.0-33.3); Mean Corpuscular Volume 79.3 fL (83.0-100.0); Mean Platelet Volume 10.9 fL (9.4-12.4); Monocytes # 0.1 K/mcL (0.0-1.3); Monocytes % 0.9 %; Neutrophils # 11.7 K/mcL (1.6-8.9); Platelet Count 206 K/mcL (140-400); Red Blood Count 4.88 M/mcL (3.82-4.97); Red Cell Distribution Width 14.2 % (11.5-14.5); Segmented Neutrophils % 92.4 %; White Blood Count 12.7 K/mcL (4.3-11.1)
[2021-07-12 07:49] VITALS: TEMP 97.9
[2021-07-12 08:18] LABS: Alanine Aminotransferase 57 Units/L (7-52); Albumin 3.6 g/dL (3.5-5.7); Albumin/Globulin Ratio 1.3 (1.1-2.2); Alkaline Phosphatase 82 Units/L (34-104); Aspartate Amino Transferase 25 Units/L (13-39); BUN/Creatinine Ratio 19 (6-26); Bilirubin,Total 0.4 mg/dL (0.3-1.0); Blood Urea Nitrogen 16 mg/dL (6-20); Calcium 8.8 mg/dL (8.6-10.3); Carbon Dioxide 21 mEq/L (23-29); Chloride 103 mEq/L (98-107); Globulin 2.8 g/dL (2.4-3.5); Glucose 271 mg/dL (70-105); Magnesium 1.7 mg/dL (1.6-2.6); Osmolality,Calculated 289 (280-300); Potassium 4.2 mEq/L (3.5-5.1); Sodium 134 mEq/L (136-145); Total Protein 6.4 g/dL (6.4-8.9); eGFR For African Americans > 60 (> 60); eGFR For Non-African Americans > 60 (> 60)
[2021-07-12] MEDS ORDERED: Isosorbide MONOnitrate (24 HR) 60 MG TAB.ER.24H PO SCH (09:00)
[2021-07-12] MEDS ORDERED: amLODIPine 5 MG TABLET PO SCH (09:00)
[2021-07-12] MEDS ORDERED: Tiotropium 10 INH DOSE IH ONE (09:00)
[2021-07-12] MEDS ORDERED: Cholecalciferol (D-3) 1,000 UNIT (25MCG) TABLET PO SCH (09:00)
[2021-07-12] MEDS: risperiDONE 1 MG TABLET PO SCH (09:14)
[2021-07-12] MEDS ORDERED: Tiotropium 10 INH DOSE IH SCH (10:00)
[2021-07-12] MEDS ORDERED: Budesonide/Formoterol 160/4.5 1 PUFF INH IH SCH (10:00)
[2021-07-12 11:00] VITALS: BP 137/81; PULSE 94; RESP 17; O2SAT 94
== END 2021-07-12 12:50 | disposition home or self-care (01) ==
LOC: INPPIK 14:00 → EMEROOPIK 14:00 → INPPIK 17:29
PROVIDERS: ADMIT Internal Medicine; ATTEND Internal Medicine

== ENCOUNTER 2022-01-10 14:51 | Inpatient (IN) ==
[2022-01-10] MEDS ORDERED: Naloxone 0.4 MG/ML INJ IVP PRN ×3 (16:48→17:22)
[2022-01-10 17:02] LABS: Basophils # 0.1 K/mcL (0.0-0.2); Basophils % 0.7 %; Eosinophils # 0.4 K/mcL (0.0-0.6); Eosinophils % 3.6 %; Hematocrit 44.3 % (35.3-44.9); Hemoglobin 14.2 g/dL (11.5-15.4); Immature Granulocytes % 0.3 % (0-4); Lymphocytes # 2.8 K/mcL (0.6-4.6); Lymphocytes % 27.6 %; Mean Corpuscular HGB Conc 32.1 g/dL (31.6-35.5); Mean Corpuscular Hemoglobin 24.7 pg (28.0-33.3); Mean Corpuscular Volume 76.9 fL (83.0-100.0); Mean Platelet Volume 10.7 fL (9.4-12.4); Monocytes # 0.7 K/mcL (0.0-1.3); Monocytes % 6.5 %; Neutrophils # 6.1 K/mcL (1.6-8.9); Platelet Count 258 K/mcL (140-400); Red Blood Count 5.76 M/mcL (3.82-4.97); Red Cell Distribution Width 14.8 % (11.5-14.5); Segmented Neutrophils % 61.3 %
[2022-01-10] MEDS ORDERED: MEPOLIZUMAB 100 MG/ML IM SCH (17:15)
[2022-01-10] MEDS ORDERED: AUTO INJECTOR IM SCH (17:15)
[2022-01-10 17:22] LABS: Albumin 4.4 g/dL (3.5-5.7); Albumin/Globulin Ratio 1.6 (1.1-2.2); Bilirubin,Total 0.6 mg/dL (0.3-1.0); Calcium 9.3 mg/dL (8.6-10.3); Chol/HDL Ratio 3.5 (0-4.9); Globulin 2.8 g/dL (2.4-3.5); Potassium 3.8 mEq/L (3.5-5.1); Total Protein 7.2 g/dL (6.4-8.9)
[2022-01-10] MEDS ORDERED: Nitroglycerin 0.4 MG TAB.SUBL SL PRN (17:49)
[2022-01-10] MEDS: Ondansetron ODT 4 MG TAB.RAPDIS SL SCH (17:52)
[2022-01-10] MEDS ORDERED: Albuterol 2.5 MG/3 ML NEBULIZER IH SCH (20:00)
[2022-01-10] MEDS: Ipratropium/Albuterol Neb 3 ML IH SCH (20:08)
[2022-01-10] MEDS: Budesonide/Formoterol 80/4.5 1 PUFF INH IH PRN (20:14)
[2022-01-10] MEDS: ALPRAZolam 0.5 MG TABLET PO SCH (20:53)
[2022-01-10] MEDS: Gabapentin 300 MG CAPSULE PO SCH (20:53)
[2022-01-10] MEDS: Furosemide 20 MG/2 ML VIAL IVP SCH (22:09)
[2022-01-11] MEDS: Ipratropium/Albuterol Neb 3 ML IH SCH ×6 (00:08→20:23)
[2022-01-11] MEDS: Ondansetron ODT 4 MG TAB.RAPDIS SL SCH ×3 (00:26→13:26)
[2022-01-11] MEDS: Levothyroxine 25 MCG TABLET PO SCH (05:48)
[2022-01-11 07:14] LABS: Basophils # 0.1 K/mcL (0.0-0.2); Basophils % 0.8 %; Eosinophils # 0.4 K/mcL (0.0-0.6); Hematocrit 43.9 % (35.3-44.9); Hemoglobin 13.5 g/dL (11.5-15.4); Immature Granulocytes % 0.4 % (0-4); Lymphocytes # 2.4 K/mcL (0.6-4.6); Lymphocytes % 32.1 %; Mean Corpuscular HGB Conc 30.8 g/dL (31.6-35.5); Mean Corpuscular Hemoglobin 24.5 pg (28.0-33.3); Mean Corpuscular Volume 79.5 fL (83.0-100.0); Mean Platelet Volume 11.4 fL (9.4-12.4); Monocytes # 0.5 K/mcL (0.0-1.3); Monocytes % 6.9 %; Platelet Count 272 K/mcL (140-400); Red Blood Count 5.52 M/mcL (3.82-4.97); Red Cell Distribution Width 15.1 % (11.5-14.5); Segmented Neutrophils % 53.8 %; White Blood Count 7.4 K/mcL (4.3-11.1)
[2022-01-11 07:31] LABS: Calcium 9.1 mg/dL (8.6-10.3); Magnesium 2.1 mg/dL (1.6-2.6); Potassium 3.9 mEq/L (3.5-5.1)
[2022-01-11] MEDS: Budesonide/Formoterol 80/4.5 1 PUFF INH IH PRN ×2 (08:04→20:23)
[2022-01-11] MEDS: Furosemide 20 MG/2 ML VIAL IVP SCH ×2 (08:12→17:18)
[2022-01-11] MEDS: amLODIPine 5 MG TABLET PO SCH (08:16)
[2022-01-11] MEDS: *HR* Metformin 500 MG TABLET PO SCH ×2 (08:16→17:02)
[2022-01-11] MEDS: ALPRAZolam 0.5 MG TABLET PO SCH (08:16)
[2022-01-11] MEDS: Isosorbide MONOnitrate (24 HR) 60 MG TAB.ER.24H PO SCH (08:16)
[2022-01-11] MEDS: Cholecalciferol (D-3) 1,000 UNIT (25MCG) TABLET PO SCH (08:16)
[2022-01-11] MEDS: predniSONE 20 MG TABLET PO SCH (08:16)
[2022-01-11] MEDS: Gabapentin 300 MG CAPSULE PO SCH ×3 (08:17→20:25)
[2022-01-11] MEDS ORDERED: predniSONE 10 MG TABLET PO SCH (09:00)
[2022-01-11] MEDS ORDERED: GuaiFENesin/Codeine Oral Soln 5 ML UDC PO PRN (09:23)
[2022-01-11] MEDS ORDERED: Ondansetron ODT 4 MG TAB.RAPDIS SL PRN (12:49)
[2022-01-11] MEDS: *HR* Heparin 5,000 UNIT/ML VIAL SQ SCH ×2 (14:09→20:31)
[2022-01-12] MEDS: Ipratropium/Albuterol Neb 3 ML IH SCH ×7 (00:15→23:31)
[2022-01-12] MEDS: Levothyroxine 25 MCG TABLET PO SCH (05:43)
[2022-01-12] MEDS: *HR* Heparin 5,000 UNIT/ML VIAL SQ SCH ×3 (05:43→20:09)
[2022-01-12 07:48] LABS: Basophils % 0.4 %; Eosinophils # 0.2 K/mcL (0.0-0.6); Eosinophils % 2.3 %; Hematocrit 37.6 % (35.3-44.9); Immature Granulocytes % 0.4 % (0-4); Lymphocytes # 2.7 K/mcL (0.6-4.6); Lymphocytes % 29.3 %; Mean Corpuscular HGB Conc 31.9 g/dL (31.6-35.5); Mean Corpuscular Hemoglobin 24.9 pg (28.0-33.3); Mean Corpuscular Volume 78.2 fL (83.0-100.0); Mean Platelet Volume 10.9 fL (9.4-12.4); Monocytes # 0.6 K/mcL (0.0-1.3); Monocytes % 6.2 %; Neutrophils # 5.7 K/mcL (1.6-8.9); Platelet Count 218 K/mcL (140-400); Red Blood Count 4.81 M/mcL (3.82-4.97); Red Cell Distribution Width 14.9 % (11.5-14.5); Segmented Neutrophils % 61.4 %; White Blood Count 9.3 K/mcL (4.3-11.1)
[2022-01-12 08:14] LABS: Calcium 8.7 mg/dL (8.6-10.3)
[2022-01-12] MEDS: Budesonide/Formoterol 80/4.5 1 PUFF INH IH PRN ×2 (08:20→20:47)
[2022-01-12] MEDS ORDERED: Dextrose Gel 15 GM/37.5 ML TUBE PO PRN ×2 (08:30)
[2022-01-12] MEDS ORDERED: *HR* Dextrose 50 % in Water (Syg) 50 ML SYRINGE IVP PRN (08:30)
[2022-01-12] MEDS ORDERED: 0.9 % Sodium Chloride 1,000 ML IVC SCH (08:30)
[2022-01-12] MEDS ORDERED: D5% in Water 1,000 ML IVC PRN (08:30)
[2022-01-12] MEDS: Cholecalciferol (D-3) 1,000 UNIT (25MCG) TABLET PO SCH (08:40)
[2022-01-12] MEDS: Isosorbide MONOnitrate (24 HR) 60 MG TAB.ER.24H PO SCH (08:40)
[2022-01-12] MEDS: predniSONE 20 MG TABLET PO SCH (08:41)
[2022-01-12] MEDS: Gabapentin 300 MG CAPSULE PO SCH ×3 (08:41→19:58)
[2022-01-12] MEDS: ALPRAZolam 1 MG TABLET PO PRN ×2 (08:41→19:58)
[2022-01-12] MEDS: amLODIPine 5 MG TABLET PO SCH (08:41)
[2022-01-12] MEDS: *HR* Metformin 500 MG TABLET PO SCH (08:42)
[2022-01-12] MEDS: Insulin LISPRO 300 UNITS/3 ML VIAL SUBQ SCH ×2 (11:59→17:06)
[2022-01-12] MEDS ORDERED: Insulin LISPRO 300 UNITS/3 ML VIAL SUBQ SCH (21:00)
[2022-01-13] MEDS: Ipratropium/Albuterol Neb 3 ML IH SCH ×3 (04:36→13:28)
[2022-01-13] MEDS: *HR* Heparin 5,000 UNIT/ML VIAL SQ SCH (05:28)
[2022-01-13] MEDS: Levothyroxine 25 MCG TABLET PO SCH (05:28)
[2022-01-13 07:37] LABS: Basophils # 0.1 K/mcL (0.0-0.2); Basophils % 0.6 %; Eosinophils # 0.2 K/mcL (0.0-0.6); Eosinophils % 1.7 %; Hematocrit 35.2 % (35.3-44.9); Immature Granulocytes % 0.2 % (0-4); Lymphocytes # 2.6 K/mcL (0.6-4.6); Lymphocytes % 27.7 %; Mean Corpuscular HGB Conc 31.3 g/dL (31.6-35.5); Mean Corpuscular Hemoglobin 24.7 pg (28.0-33.3); Mean Corpuscular Volume 79.1 fL (83.0-100.0); Monocytes # 0.6 K/mcL (0.0-1.3); Monocytes % 6.4 %; Platelet Count 214 K/mcL (140-400); Red Blood Count 4.45 M/mcL (3.82-4.97); Red Cell Distribution Width 14.8 % (11.5-14.5); Segmented Neutrophils % 63.4 %; White Blood Count 9.4 K/mcL (4.3-11.1)
[2022-01-13 07:56] VITALS: BP 144/74; PULSE 83; TEMP 98.3
[2022-01-13 07:56] LABS: Calcium 8.7 mg/dL (8.6-10.3); Potassium 3.8 mEq/L (3.5-5.1)
[2022-01-13] MEDS: Budesonide/Formoterol 80/4.5 1 PUFF INH IH PRN (08:19)
[2022-01-13 08:22] VITALS: RESP 16
[2022-01-13] MEDS: predniSONE 20 MG TABLET PO SCH (09:46)
[2022-01-13] MEDS: Gabapentin 300 MG CAPSULE PO SCH (09:46)
[2022-01-13] MEDS: amLODIPine 5 MG TABLET PO SCH (09:46)
[2022-01-13] MEDS: Cholecalciferol (D-3) 1,000 UNIT (25MCG) TABLET PO SCH (09:47)
[2022-01-13] MEDS: Isosorbide MONOnitrate (24 HR) 60 MG TAB.ER.24H PO SCH (09:47)
[2022-01-13] MEDS: ALPRAZolam 1 MG TABLET PO PRN (09:47)
[2022-01-13 11:25] VITALS: O2SAT 95
[2022-01-13] MEDS: Insulin LISPRO 300 UNITS/3 ML VIAL SUBQ SCH ×2 (12:02→12:03)
== END 2022-01-13 13:30 | disposition home or self-care (01) | DRG 291 ==
LOC: INPPIK → OBSVTOIN 15:58
PROVIDERS: ADMIT Family Medicine; ATTEND Family Medicine